=== PATIENT | male | born 1940 ===

== ENCOUNTER → 2024-05-10 17:34 | Outpatient (REF) | payer SELFPAY ==
[2024-05-10 17:49] LABS: Color, Urine Yellow (Yellow); Glucose, Dipstick Normal (Normal); Ketone-Dipstick 15 mg/dl (Negative); Leukocyte Esterase-Dipstick 100 /ul (Negative); Nitrite-Dipstick Negative (Negative); Occult Blood-Urine 50 /ul (Negative); Protein-Dipstick 500 mg/dl (Negative); Urine Bilirubin Dipstick Negative (Negative); Urine Clarity Sl. Cloudy (Clear); Urine Urobilinogen 1 mg/dl (Normal)
== END ==
LOC: LABSPEC 17:34
DX: R53.1 Weakness (principal); R53.83 Other fatigue; Z87.440 Personal history of urinary (tract) infections
CPT/HCPCS: 81002; 87077; 87086; 87088; 87186